=== PATIENT | male | born 1950 | race Caucasian/White ===

== ENCOUNTER 2024-11-24 20:13 | Inpatient (IN) | payer OTHER ==
[~2024-11-24] VITALS: Ht 175.3 cm; Wt 81.6 kg
[~2024-11-24 20:13] MED LIST: CEFD300C3 PO; CEFE2FRO IV
[2024-11-24 20:54] LABS: PLATELET COUNT (AUTO) 254 K/uL (150-450); RED BLOOD CELL COUNT(AUTO) 5.01 MIL/uL (4.5-6.0); RED CELL DISTRIBUTION WIDTH 14.3 % (11.5-15.0); WHITE BLOOD COUNT (AUTO) 7.4 K/uL (4.3-11.0)
[2024-11-24 21:00] LABS: CALCIUM, SERUM 9.0 mg/dL (8.5-10.1); CREATININE 0.8 mg/dL (0.6-1.3); SODIUM SERUM 141 mmol/L (136-145); UREA NITROGEN, BLOOD 29 mg/dL (7-18)
[2024-11-24 21:06] LABS: ALCOHOL, BLOOD < 3 mg/dL (0-10); ASPARTATE AMINOTRANSFERASE 9 U/L (15-37); TOTAL PROTEIN, SERUM 6.9 g/dL (6.4-8.2)
[2024-11-24 21:40] LABS: APPEARANCE,URINE SLIGHTLY CLOUDY (CLEAR); BLOOD, URINE 2+ Ery/uL (NEGATIVE); LEUKOCYTE ESTERASE ,URINE 1+ (NEGATIVE); NITRITE, URINE POSITIVE (NEGATIVE); UGLUCOSE NEGATIVE (NEGATIVE)
[2024-11-24 21:51] LABS: ADD URINE CULTURE YES; AMPHETAMINE, URINE NEGATIVE (NEGATIVE); BARBITURATE, URINE NEGATIVE (NEGATIVE); BENZODIAZEPINE, URINE NEGATIVE (NEGATIVE); CANNABINOID, URINE NEGATIVE (NEGATIVE); COCCAINE, URINE NEGATIVE (NEGATIVE); OPIATE, URINE NEGATIVE (NEGATIVE)
[2024-11-24] MEDS ORDERED: Z GUARD REMEDY 4 OZ OINT TP PRN (23:00)
[2024-11-24] MEDS ORDERED: MAG HYDROX/AL HYDROX/SIMETH 30 ML UDC PO PRN (23:00)
[2024-11-24] MEDS ORDERED: MAGNESIUM HYDROXIDE 30 ML UDC PO PRN (23:00)
[2024-11-24] MEDS ORDERED: ONDANSETRON HCL/PF 4 MG/2 ML VIAL IVP PRN (23:00)
[2024-11-24] MEDS ORDERED: CEFTRIAXONE 1GM BAG (ER ONLY) 50 ML IV ONE (23:11)
[2024-11-24] MEDS: CEFTRIAXONE 1GM BAG (ER ONLY) 1 GM/50 ML PIGGYBACK IV ONE (23:12)
[2024-11-24 23:30] VITALS: BP 140/76; TEMP 97.9; O2SAT 97
[2024-11-25] MEDS: IV NS 0.9% 1,000 ML IV PRN (00:28)
[2024-11-25] MEDS: ENOXAPARIN SODIUM 40 MG/0.4 ML DISP.SYRIN SQ SCH (00:29)
[2024-11-25] MEDS ORDERED: LORAZEPAM 1 MG TABLET PO PRN (04:00)
[2024-11-25 07:00] VITALS: BP 140/81; TEMP 97.5; O2SAT 95
[2024-11-25] MEDS: PANTOPRAZOLE 40 MG TABLET.DR PO SCH (08:06)
[2024-11-25] MEDS: CEFEPIME 1 GM in IV D5W 50 ML IV SCH (08:06)
[2024-11-25] MEDS: AMLODIPINE BESYLATE 5 MG TABLET PO SCH (08:06)
[2024-11-25] MEDS ORDERED: ALBU18HF2 IH (08:36)
[2024-11-25] MEDS ORDERED: ACET325T53 PO (08:36)
[2024-11-25] MEDS ORDERED: AMLO-212 PO (08:36)
[2024-11-25 16:00] VITALS: BP 137/76; TEMP 98.1; O2SAT 95
[2024-11-25 20:00] VITALS: BP 140/79; TEMP 97.3; O2SAT 93; O2SAT 95
[2024-11-26 07:30] VITALS: BP 153/83; TEMP 98.2; O2SAT 96
[2024-11-26] MEDS: QUETIAPINE FUMARATE 25 MG TABLET PO SCH (13:30)
[2024-11-26 16:19] VITALS: BP 151/82; TEMP 97.5; O2SAT 95
[2024-11-26 20:00] VITALS: BP 166/80; TEMP 97.6; O2SAT 95
[2024-11-27 07:30] VITALS: BP 157/90; TEMP 97.3; O2SAT 96
[2024-11-27 16:00] VITALS: BP 146/86; TEMP 98.1; O2SAT 96
[2024-11-27 20:00] VITALS: BP 159/95; O2SAT 95
[2024-11-28 06:18] LABS: PLATELET COUNT (AUTO) 203 K/uL (150-450); RED BLOOD CELL COUNT(AUTO) 4.91 MIL/uL (4.5-6.0); RED CELL DISTRIBUTION WIDTH 13.7 % (11.5-15.0); WHITE BLOOD COUNT (AUTO) 5.4 K/uL (4.3-11.0)
[2024-11-28 06:38] LABS: CALCIUM, SERUM 9.0 mg/dL (8.5-10.1); CREATININE 0.6 mg/dL (0.6-1.3); SODIUM SERUM 141.0 mmol/L (136-145); UREA NITROGEN, BLOOD 15.0 mg/dL (7-18)
[2024-11-28 08:00] VITALS: BP 145/80; TEMP 98; O2SAT 96
[2024-11-28 16:00] VITALS: BP 149/85; TEMP 97.5; O2SAT 95
[2024-11-28 20:00] VITALS: BP 124/83; TEMP 98.4; O2SAT 98
[2024-11-29 07:00] VITALS: BP 152/91; TEMP 98.8; O2SAT 97
[2024-11-29] MEDS: QUETIAPINE FUMARATE 25 MG TABLET PO SCH (08:36)
[2024-11-29 09:56] LABS: PLATELET COUNT (AUTO) 234 K/uL (150-450); RED BLOOD CELL COUNT(AUTO) 5.09 MIL/uL (4.5-6.0); RED CELL DISTRIBUTION WIDTH 13.5 % (11.5-15.0); WHITE BLOOD COUNT (AUTO) 7.1 K/uL (4.3-11.0)
[2024-11-29 10:22] LABS: CALCIUM, SERUM 8.8 mg/dL (8.5-10.1); CREATININE 0.8 mg/dL (0.6-1.3); SODIUM SERUM 142.0 mmol/L (136-145); UREA NITROGEN, BLOOD 14.0 mg/dL (7-18)
[2024-11-29 16:00] VITALS: BP 150/92; TEMP 97.9; O2SAT 94
[2024-11-29] MEDS: OLANZAPINE 10 MG VIAL IM ONE (21:45)
[2024-11-30 08:00] VITALS: BP 148/87; TEMP 99; O2SAT 98
[2024-12-01 08:00] VITALS: BP 129/73; TEMP 98.2; O2SAT 100
[2024-12-01 16:10] VITALS: BP 132/74; TEMP 98; O2SAT 94
[2024-12-01] MEDS: ACETAMINOPHEN 325 MG TABLET PO PRN (17:19)
[2024-12-01 20:00] VITALS: BP 136/79; TEMP 97.9; O2SAT 95
[2024-12-02] MEDS ORDERED: QUET25TA PO (10:32)
[2024-12-02] MEDS ORDERED: Quetiapine Fumarate PO (10:32)
[2024-12-02] MEDS ORDERED: LEVO500T90 PO (10:32)
[2024-12-02 16:07] VITALS: BP 138/78; TEMP 97.6; O2SAT 96
[2024-12-02 20:00] VITALS: BP_SYST 164; BP_SYST 169; BP_DIAS 80; TEMP 98.2; O2SAT 90; O2SAT 93
[2024-12-02 22:00] VITALS: BP 141/81; TEMP 98.2; O2SAT 95
[2024-12-03 08:24] VITALS: BP 148/88; TEMP 97.5; O2SAT 96
[2024-12-03 09:22] VITALS: BP 148/58
== END 2024-12-03 12:30 | DRG 699 ==
LOC: ER 20:14 → MED 22:46
PROVIDERS: ADMIT Registered Nurse Psychiatric/Mental Health; ATTEND Nurse Practitioner Family
DX: T83.511A Infection and inflammatory reaction due to indwelling urethral catheter, initial encounter (principal); E44.1 Mild protein-calorie malnutrition; N39.0 Urinary tract infection, site not specified; E86.0 Dehydration; E88.09 Other disorders of plasma-protein metabolism, not elsewhere classified; Y84.6 Urinary catheterization as the cause of abnormal reaction of the patient, or of later complication, without mention of misadventure at the time of the procedure; Y92.099 Unspecified place in other non-institutional residence as the place of occurrence of the external cause; I10 Essential (primary) hypertension; Z78.1 Physical restraint status; K59.00 Constipation, unspecified; B96.89 Other specified bacterial agents as the cause of diseases classified elsewhere; R73.9 Hyperglycemia, unspecified; F29 Unspecified psychosis not due to a substance or known physiological condition; L98.9 Disorder of the skin and subcutaneous tissue, unspecified; L89.321 Pressure ulcer of left buttock, stage 1; L89.311 Pressure ulcer of right buttock, stage 1; J34.89 Other specified disorders of nose and nasal sinuses; N13.9 Obstructive and reflux uropathy, unspecified; Z87.440 Personal history of urinary (tract) infections
CPT/HCPCS: 36415; 71045-TC; 80048-TC; 80076-TC; 81001; 85025-TC; 87081-TC; 87086-TC; 87186-TC; 97110-TC; 97116-TC; 97530-TC; 97535-TC; A4223; G0378; G0480; J0692; J0696; J1650; J3490; J7030; J7060

== ENCOUNTER 2024-12-05 10:52 | Inpatient (IN) | payer MEDICARE, OTHER ==
[~2024-12-05] VITALS: Ht 177.8 cm; Wt 76.7 kg
[~2024-12-05 10:52] MED LIST changes: +ACET325T53 PO; +ALBU18HF2 IH; +AMLO-212 PO; -CEFD300C3 PO; -CEFE2FRO IV; +LEVO500T90 PO; +QUET25TA PO; +Quetiapine Fumarate PO
[2024-12-05] MEDS: IV NS 0.9% 500 ML BAG IV ONE (11:19)
[2024-12-05 11:21] LABS: PLATELET COUNT (AUTO) 254 K/uL (150-450); RED BLOOD CELL COUNT(AUTO) 5.33 MIL/uL (4.5-6.0); RED CELL DISTRIBUTION WIDTH 13.8 % (11.5-15.0); WHITE BLOOD COUNT (AUTO) 8.1 K/uL (4.3-11.0)
[2024-12-05 11:40] LABS: ASPARTATE AMINOTRANSFERASE 17 U/L (15-37); CALCIUM, SERUM 8.9 mg/dL (8.5-10.1); CREATININE 0.7 mg/dL (0.6-1.3); TOTAL PROTEIN, SERUM 7.3 g/dL (6.4-8.2); UREA NITROGEN, BLOOD 15 mg/dL (7-18)
[2024-12-05 11:47] LABS: SODIUM SERUM 140 mmol/L (136-145)
[2024-12-05 12:46] LABS: APPEARANCE,URINE CLEAR (CLEAR); BLOOD, URINE Trace-lysed Ery/uL (NEGATIVE); LEUKOCYTE ESTERASE ,URINE Negative (NEGATIVE); UGLUCOSE Negative (NEGATIVE)
[2024-12-05 12:50] LABS: NITRITE, URINE NEGATIVE (NEGATIVE)
[2024-12-05 12:59] LABS: ADD URINE CULTURE YES; SQUAMOUS EPITHELIAL CELL,UR 0-2 /HPF (None Seen)
[2024-12-05] MEDS ORDERED: MAGNESIUM HYDROXIDE 30 ML UDC PO PRN (15:00)
[2024-12-05] MEDS ORDERED: MAG HYDROX/AL HYDROX/SIMETH 30 ML UDC PO PRN (15:00)
[2024-12-05] MEDS ORDERED: Z GUARD REMEDY 4 OZ OINT TP PRN (15:00)
[2024-12-05] MEDS ORDERED: ACETAMINOPHEN 325 MG TABLET PO PRN ×2 (15:00)
[2024-12-05] MEDS ORDERED: ONDANSETRON HCL/PF 4 MG/2 ML VIAL IVP PRN (15:00)
[2024-12-05 16:00] VITALS: BP 148/86; TEMP 97.7; O2SAT 97
[2024-12-05] MEDS ORDERED: ALBUTEROL FS 2.5 MG/3 ML VIAL.NEB NEB PRN (16:00)
[2024-12-05 17:00] VITALS: BP 148/86; TEMP 97.7
[2024-12-05] MEDS: AMLODIPINE BESYLATE 5 MG TABLET PO SCH (17:12)
[2024-12-05] MEDS: QUETIAPINE FUMARATE 25 MG TABLET PO SCH (17:12)
[2024-12-05] MEDS: IV NS 0.9% 1,000 ML IV PRN (17:13)
[2024-12-05 20:00] VITALS: BP 148/80; TEMP 98.1; O2SAT 98
[2024-12-06 05:59] LABS: PLATELET COUNT (AUTO) 225 K/uL (150-450); RED BLOOD CELL COUNT(AUTO) 4.98 MIL/uL (4.5-6.0); RED CELL DISTRIBUTION WIDTH 13.7 % (11.5-15.0); WHITE BLOOD COUNT (AUTO) 7.1 K/uL (4.3-11.0)
[2024-12-06 06:01] LABS: CALCIUM, SERUM 8.7 mg/dL (8.5-10.1); CREATININE 0.7 mg/dL (0.6-1.3); PHOSPHORUS 3.7 mg/dL (2.5-4.9); SODIUM SERUM 141 mmol/L (136-145); UREA NITROGEN, BLOOD 17 mg/dL (7-18)
[2024-12-06 07:30] VITALS: BP 144/72; TEMP 98.1; O2SAT 95
[2024-12-06] MEDS: LEVOFLOXACIN (250MG) 250 MG TABLET PO SCH (09:08)
[2024-12-06] MEDS: POTASSIUM CHLORIDE 20 MEQ TAB.PRT.SR PO SCH (09:39)
[2024-12-06 16:00] VITALS: BP 148/80; TEMP 98.1; O2SAT 95
[2024-12-06 20:00] VITALS: BP 121/97; TEMP 98.1; O2SAT 98
[2024-12-07 07:10] LABS: PLATELET COUNT (AUTO) 212 K/uL (150-450); RED BLOOD CELL COUNT(AUTO) 4.88 MIL/uL (4.5-6.0); RED CELL DISTRIBUTION WIDTH 13.9 % (11.5-15.0); WHITE BLOOD COUNT (AUTO) 5.5 K/uL (4.3-11.0)
[2024-12-07 07:16] LABS: CALCIUM, SERUM 8.5 mg/dL (8.5-10.1); CREATININE 0.8 mg/dL (0.6-1.3); SODIUM SERUM 146.0 mmol/L (136-145); UREA NITROGEN, BLOOD 15.0 mg/dL (7-18)
[2024-12-07 08:09] VITALS: BP 138/79; TEMP 97.7; O2SAT 98
[2024-12-07] MEDS: POTASSIUM CHLORIDE 20 MEQ TAB.PRT.SR PO SCH (10:00)
[2024-12-07] MEDS: OLANZAPINE 10 MG VIAL IM ONE (23:53)
[2024-12-08 08:00] VITALS: BP 147/84; TEMP 97.5; O2SAT 96
[2024-12-08 16:00] VITALS: BP 150/88; TEMP 97.5; O2SAT 98
[2024-12-08 20:00] VITALS: BP 156/84; TEMP 98.1; O2SAT 95
[2024-12-08 20:35] VITALS: BP 115/83; TEMP 98.1; O2SAT 100
[2024-12-09 08:00] VITALS: BP 139/68; TEMP 99; O2SAT 99
[2024-12-09 16:00] VITALS: BP 124/74; TEMP 100; O2SAT 96
[2024-12-09 20:00] VITALS: BP 137/85; TEMP 98.2; O2SAT 95
[2024-12-09 20:51] VITALS: BP 137/85; TEMP 98.2; O2SAT 95
[2024-12-10 08:00] VITALS: BP 141/89; TEMP 99; O2SAT 96
[2024-12-10 16:00] VITALS: BP 158/87; TEMP 97.5; O2SAT 94
[2024-12-10 20:00] VITALS: BP 153/89; TEMP 97.5; O2SAT 95
[2024-12-10 23:41] LABS: PLATELET COUNT (AUTO) 185 K/uL (150-450); RED BLOOD CELL COUNT(AUTO) 4.92 MIL/uL (4.5-6.0); RED CELL DISTRIBUTION WIDTH 13.6 % (11.5-15.0); WHITE BLOOD COUNT (AUTO) 6.8 K/uL (4.3-11.0)
[2024-12-10 23:46] LABS: CALCIUM, SERUM 8.4 mg/dL (8.5-10.1); CREATININE 0.7 mg/dL (0.6-1.3); SODIUM SERUM 140 mmol/L (136-145); UREA NITROGEN, BLOOD 14 mg/dL (7-18)
[2024-12-11 01:30] VITALS: BP 137/81; TEMP 98.2; O2SAT 96
[2024-12-11 04:33] LABS: BASOPHILS % (MANUAL) 1 % (0.0-2.0); EOSINOPHILS % (MANUAL) 2 % (0-4); LYMPHOCYTES % (MANUAL) 26 % (16-48); MONOCYTES % (MANUAL) 6 % (0-11.0); NEUTROPHILS % (MANUAL) 65 (42-76); PLATELET ESTIMATE ADEQUATE
[2024-12-11 08:46] VITALS: BP 149/82; TEMP 97.5; O2SAT 94
[2024-12-11] MEDS: POTASSIUM CHLORIDE 20 MEQ TAB.PRT.SR PO ONE (08:55)
[2024-12-11 16:14] VITALS: BP 139/80; TEMP 98; O2SAT 98
[2024-12-11 20:00] VITALS: BP 150/84; TEMP 97.3; O2SAT 100
[2024-12-11 20:13] VITALS: BP 150/84; TEMP 97.3; O2SAT 100
[2024-12-12 09:09] VITALS: BP 158/87; TEMP 97.5; O2SAT 98
[2024-12-12 17:32] VITALS: BP 136/85; TEMP 97.6; O2SAT 98
[2024-12-12 22:00] VITALS: BP 157/83; TEMP 98.1; O2SAT 99
[2024-12-13 07:30] VITALS: BP 155/83; TEMP 97.7; O2SAT 96
[2024-12-13 08:32] VITALS: BP 155/83
== END 2024-12-13 14:27 | disposition home health service (06) | DRG 640 ==
LOC: ER 10:58 → MED 15:36 → UNDODISIN 12-12 16:44 → MED 12-12 20:30
PROVIDERS: ADMIT Nurse Practitioner Acute Care; ATTEND Nurse Practitioner Acute Care
DX: E86.0 Dehydration (principal); G93.41 Metabolic encephalopathy; E44.0 Moderate protein-calorie malnutrition; N39.0 Urinary tract infection, site not specified; F03.92 Unspecified dementia, unspecified severity, with psychotic disturbance; R62.7 Adult failure to thrive; N13.9 Obstructive and reflux uropathy, unspecified; E87.6 Hypokalemia; E87.1 Hypo-osmolality and hyponatremia; I10 Essential (primary) hypertension; R26.9 Unspecified abnormalities of gait and mobility; Z87.440 Personal history of urinary (tract) infections; E88.09 Other disorders of plasma-protein metabolism, not elsewhere classified; Z79.51 Long term (current) use of inhaled steroids; Z79.899 Other long term (current) drug therapy; F29 Unspecified psychosis not due to a substance or known physiological condition
CPT/HCPCS: 36415; 71045-TC; 80048-TC; 80076-TC; 81001; 83735-TC; 84100-TC; 84443-TC; 84484-TC; 85025-TC; 85027-TC; 87081-TC; 87086-TC; 92526; 92611; 97110-TC; 97112-TC; 97116-TC; 97530-TC; 97535-TC; A4223; G0378; J3490; J7030; J7040; J7042